=== PATIENT | male | born 1940 | race Caucasian/White ===

== ENCOUNTER 2019-09-29 12:33 | Observation (INO) | payer MEDICARE, SELFPAY ==
[2019-09-29] VITALS (10 sets, daily range): BP systolic 80–101; BP diastolic 51–75; PULSE 73–95; RESP 18–23; TEMP 36.4–36.8; O2SAT 94–97; BMI 22.3; BMI 21.8
--- NOTE | 2019-09-29 13:05 | ED.VISSUMM ---
- ER Visit Summary Date of Service: 09/29/19 Chief Complaint: Low blood pressure and near syncopal last night History of Present Illness: The patient is a 79 M history of chronic lymphocytic leukemia have been treated for that since 1992. Currently is on chemotherapy. His elevated blood sugars are working up for diabetes and has had prior PEs and DVTs for which he is on Coumadin. Patient states he felt well recently. He denies nausea, vomiting or diarrhea. He had a near syncopal episode last night because he felt weak all over and lightheaded. Was seen today at [facility] by 1 of the nurse practitioners and did a low blood pressure of 70/50 the same to the ER. He denies any abdominal pain or chest pain. He denies any shortness of breath. He denies any melena. Physical Examination: Older male initial blood pressure is 80/51 lying in the room is 94/60. He does not look septic or toxic. He sitting upright in bed conversing normally. Mathis at bedside. He does not look septic or toxic currently. H EENT T exam unremarkable moist his membranes. Neck nontender no JVD. No lymphadenopathy. Lungs clear to auscultation bilaterally. Heart rhythm rate about 95 no murmur. Chest were nontender. Abdomen soft nontender. Normal bowel sounds no peritoneal signs. Remedies moves all 4. He has a bruise on his left forearm and right forearm secondary being on Coumadin. He has normal spearer strength and dorsi and plantarflexion. Back is nontender. Neurologically is awake alert with no focal motor deficits. Test Results: Chest x-ray portable one view shows no acute abnormality. No infiltrate. Read both myself and radiologist. Chronic changes. EKG sinus rhythm rate 87 no acute signs of DC or ischemia. No dysrhythmia. CBC shows white count 32,000 which is his baseline he has CLL and his most recent white count was around 28,000 according to his oncologist. Hemoglobin 13. Platelet count of 85,000 and at his baseline also. Nasal bands. Chemistries unremarkable except glucose of 281. Normal gap of 8 BUN 20 creatinine 1.3. Troponin normal. Lactate 2.1. Patient is on Coumadin and INR subtherapeutic at 1.5. Urinalysis is still pending the patient has been unable to urinate as of this time he is already had 2 L of fluid. I also spoke to his oncologist who told me that his most recent blood cultures from the office were also negative. He was started on oral antibiotic for bronchitis. Emergency Department Course and Treatment: Older male on chemotherapy for CLL with hypotension. Treated with a liter normal saline. Second liter and will be started on the third. Treatment Plan: I spoke to patient oncologist. I also spoke to the hospitalist. Patient be admitted. Hospitalist wants patient on MedSurg. And does not want to start any antibiotics at this time which I am comfortable with since he has no fever no he has no source. Disposition: Admission Impression: Acute hypotension, uncertain etiology History of CLL on chemotherapy Anticoagulated on Coumadin This note was generated with [employer] dictation software. It may contain incorrect words, spelling, and punctuation that were not noted in review of the chart prior to signing ED Disposition - Plan for ED Patient: Referrals: Hollis Guillen III, MD [Primary Care Provider] -
--- NOTE | 2019-09-29 13:08 | EKG12_ITS ---
Test Reason : Blood Pressure : / mmHG Vent. Rate : 087 BPM Atrial Rate : 087 BPM P-R Int : 136 ms QRS Dur : 082 ms QT Int : 320 ms P-R-T Axes : 048 075 047 degrees QTc Int : 385 ms Normal sinus rhythm Normal ECG Confirmed by HEATHER MONREAL, ADRIÁN ([id number]), editorial specialist JOLEEN TIRADO ([id number]) on 10/02/2019 10:01:49 AM Referred By: Trino Andrews Confirmed By:ADRIÁN ROMERO MD
--- NOTE | 2019-09-29 13:15 | RAD_ITS ---
STUDY: X-RAY CHEST REASON FOR EXAM: Male, 79 years old. Hypotension. TECHNIQUE: Single AP portable view of the chest. COMPARISON: Comparison is made with prior study dated August 20, 2017. FINDINGS: EKG electrodes are seen. Hyperinflation. There is no demonstrated pleural abnormality. Normal size heart. Normal mediastinum and rona. There is prominence of the pulmonary hilar arteries without peripheral pulmonary vascular congestion, suggesting pulmonary hypertension. Normal visualized aortic arch and descending thoracic aorta. Normal visualized thoracic spine. Normal visualized ribs, clavicles, and shoulders. There is no demonstrated abnormality of the visualized soft tissue structures of the upper abdomen. RAD/Chest 1 View (Portable) IMPRESSION: Hyperinflation. The lungs are clear. Electronically Signed: Alex Saravia, at 13:30 EDT , Service support ,
[2019-09-29] MEDS: 0.9% Normal Saline 1,000 ML 1000 ML IV (13:28)
[2019-09-29 13:29] LABS: Absolute Lymphocyte Count 20.99 X10^3/uL (0.83-4.51); Absolute Neutrophil Count 9.6 X10^3/uL (2.0-7.7); Basophil# 0.18 X10^3/uL; Basophil% 0.5 % (0-1); Eosinophil# 0.09 X10^3/uL; Eosinophils% 0.3 % (0-5); Hematocrit 41.6 % (40-54); Hemoglobin 13.7 g/dL (13.0-16.5); Lymphocyte # 20.99 X10^3/ul (4.0); Lymphocyte % 63.1 % (19-41); Mean Corp Hgb Conc 32.9 g/dL (32-36); Mean Corpuscular Hgb 33.4 pg (27.0-32.0); Mean Corpuscular Volume 101.5 fL (80-94); Mean Platelet Vol. 13.4 fl (6.2-12.0); Monocyte# 2.13 X10^3/uL; Monocyte% 6.4 % (0-10); NRBC Flagged by Analyzer 0 % (0-5); Neutrophil # 9.63 X10^3/uL (2.7-7.7); Neutrophil % 28.9 % (47-70); POSITIVE COUNT YES; POSITIVE DIFFERENTIAL YES; POSITIVE MORPHOLOGY YES; Platelet Count 85 K/mm3 (150-450); RBC Distribution Width CV 14.2 % (11.6-14.6); RBC Distribution Width SD 52.4 fl (35.1-43.9); White Blood Count 33.3 K/mm3 (4.4-11.0)
[2019-09-29 13:33] LABS: Anion Gap 8 (5-15); BUN 20 mg/dL (7-18); BUN/Creat Ratio 15.4 RATIO (10-20); Calcium,Total 9.6 mg/dL (8.5-10.1); Chloride 99 mmol/L (98-107); EST Glomerular Filtration Rate 57 mL/min (>60); Est Glom Filt Rate - Afr Amer 68 mL/min (>60); Estimated Creatinine Clearance 51.35 ml/min; Glucose 281 mg/dL (74-106); Potassium 4.6 mmol/L (3.5-5.1); Sodium Level 133 mmol/L (136-145)
--- NOTE | 2019-09-29 14:01 | NURSING ---
BLUE TOP IS TOO SHORT
[2019-09-29 14:08] LABS: Lactic Acid 2.1 mmol/L (0.4-2.0)
[2019-09-29 14:22] LABS: International Normalized Ratio 1.5; Prothrombin Time (Protime)PT. 17.5 SECONDS (11.7-14.9)
[2019-09-29] MEDS: 0.9% Normal Saline 1,000 ML 999 ML IV (14:50)
--- NOTE | 2019-09-29 15:35 | NURSING ---
MED SURG JOPPERI OBS HYPOTENSION
--- NOTE | 2019-09-29 15:55 | HP.PCM_ITS ---
Problem List (1) Hypotension Status: Acute History of Present Illness Date of Admission: 09/29/19 Chief Complaint: malaise The patient is a 79 year old M who has not been feeling well for the past few days. Yesterday, around 1030 last night, patient was up to go to the bathroom and then he just felt woozy nearly passed out. Went to an urgent care today and he was found to be hypotensive and then directed to the emergency room where the patient was hypotensive in the 80s. Received 2 L of IV fluid and currently his pressures are in the 90s. Several days ago, patient was having a cough and saw his oncologist who started him on Augmentin. Patient denies history of a low blood pressure before. Recently, patient has been found to have elevated blood sugars. Patient's blood sugar yesterday was 300. Stated that he diabetes medication was sent to his pharmacy. He has not started it nor does he know what the actual medication is. [] Past Medical History Medical History: Medical History (Last Updated 09/29/19 @ 15:58 by Trino Andrews DO) DM2 (diabetes mellitus, type 2) E11.9 DVT (deep venous thrombosis) I82.409 CLL (chronic lymphocytic leukemia) C91.10 Gout M10.9 Leukemia C95.90 Allergies No Known Allergies Allergy (Verified 09/29/19 12:33) Home Medications: Ambulatory Orders Medication Instructions Recorded Amoxicillin/Potassium Clav 1 tab PO BID 09/29/19 [Amox-Clav 875-125 mg Tablet] Famotidine 20 mg PO DAILY 09/29/19 Finasteride 5 mg PO DAILY 09/29/19 Folic Acid 1 mg PO DAILY 09/29/19 Ibrutinib [Imbruvica] 140 mg PO DAILY 09/29/19 Multivitamin [Multiple Vitamins] 1 tab PO DAILY 09/29/19 Prednisone 10 mg PO DAILY 09/29/19 Simvastatin 40 mg PO DAILY 09/29/19 Warfarin [Coumadin ([facility])] 2.5 mg PO DAILY 09/29/19 Surgical History: Surgical History (Last Updated 08/29/18 @ 12:49 by Kalli Maldonado) heel surgery due to crush injury Smoking Status: Never smoker - *Family History Maternal History Items: - - no cancer Review of Systems Constitutional: Reports: Anorexia, Chills, Fever, Malaise Eyes: Denies: Blurred vision, Double vision HEENT: Denies: Head Aches, Sinus Congestion, Sinus Drainage Cardiovascular: Denies: Chest Pain, Palpitations Respiratory: Denies: Cough, Shortness of breath at rest, Sputum production Gastrointestinal: Denies: Abdominal Pain, Nausea, Vomiting Genitourinary: Reports: - - Decreased urine output today. Denies: Dysuria Musculoskeletal: Denies: Joint Pain, Joint Tenderness Skin: Denies: Rash, Wounds Neurological: Reports: Balance problems. Denies: Blurred vision, Double vision Psychiatric: Denies: Anxiety, Depression Hematologic/ Lymphatic: Reports: Hx of blood clot. Denies: Easy Bruising, Easy Bleeding Comment: All review systems are otherwise negative except for as mentioned above in HPI. VTE Information - Inpt Only VTE Present on Admission: Yes VTE Mechan Device Prophylaxis: None VTE Pharm Prophylaxis ordered?: No Reason prophylaxis not ordered:: Procedure Not Indicated Patient Problems: Active and Suspected Problems (Last Updated 08/29/18 @ 12:49 by Kalli Maldonado) Hypotension (Acute) - Physical Exam Vitals/I&O's: Vital Signs Temp Pulse Resp BP Pulse Ox 36.7 C 79 18 93/63 95 09/29/19 14:46 09/29/19 14:46 09/29/19 14:46 09/29/19 14:46 09/29/19 14:46 Oxygen Delivery Method Room Air Weight: 78.8 kg Body Mass Index (BMI) 22.3 Intake and Output for Last 24 Hours 09/27/19 09/28/19 09/29/19 23:59 23:59 23:59 Intake Total 1000 / 1000 Balance 1000 / 1000 General: Alert, Cooperative, No apparent distress, Well developed, Well nourished HEENT: Atraumatic, Normocephalic, - - no icterus Oral: Moist Mucosa, No Gingival or Mucosal Lesions/ Ulcerations Neck: No Nodes, Trachea Midline Lungs: Clear to auscultation, Normal air movement, No rhonchi, No wheeze, No rales Cardiovascular: Regular rate, Regular Rhythm, Normal S1, Normal S2, No murmurs Abdomen: Bowel Sounds Present, Soft, Non Tender, Non-Distended, No Hepato- splenomegaly Extremities: No edema, No Calf Tenderness Skin: No rashes, No breakdown Musculoskeletal: No Tenderness to Palpation of Joints or Extremities, No Muscle Wasting Neurological: - - no clonus Psych/Mental Status: Normal Affect, Appropriate Laboratory Results 09/29/19 12:00: PT 17.5 H, INR 1.5 09/29/19 12:52: WBC 33.3 H*, RBC 4.10 L, Hgb 13.7, Hct 41.6, MCV 101.5 H, MCH 33.4 H, MCHC 32.9, RDW Std Deviation 52.4 H, RDW Coeff of Amilcar 14.2, Plt Count 85 L, MPV 13.4 H, Immature Gran % (Auto) 0.800, Neut % (Auto) 28.9 L, Lymph % (Auto) 63.1 H, [place] % (Auto) 6.4, Eos % (Auto) 0.3, Baso % (Auto) 0.5, Absolute Neuts (auto) 9.6 H, Absolute Lymphs (auto) 20.99 H, Nucleated RBC % 0 09/29/19 12:52: PT Cancelled, INR Cancelled 09/29/19 12:52: Sodium 133 L, Potassium 4.6, Chloride 99, Carbon Dioxide 26.0, Anion Gap 8, BUN 20 H, Creatinine 1.30, Estim Creat Clear Calc 51.35, Est GFR (MDRD) Af Amer 68, Est GFR (MDRD) Non-Af 57 L, BUN/Creatinine Ratio 15.4, Glucose 281 H, Calcium 9.6, Troponin I 0.035 09/29/19 13:27: Lactic Acid 2.1 H EKG reviewed and showed normal sinus rhythm without any acute changes. Chest x-ray reviewed and showed normal airways. No pulmonary congestion no infiltrate. Assessment/Plan All Active Problems (Last Updated 08/29/18 @ 12:49 by Kalli Maldonado) Hypotension (Acute) 1. Hypotension * Clinically patient does not appear to be dry though he did respond with IV fluids * I am concerned there may be some component of adrenal insufficiency given the patient's chronic prednisone use with a recent upper respiratory infection * Patient is on prednisone 10 mg daily. But given dose of 60 today and then patient will need to be on a taper down to his 10 mg dosing. * We will give the patient some additional IV fluids and monitor him. * No obvious source of bacterial infection can be identified at this time. Urinalysis is been ordered but has not yet been performed this patient has not been able to urinate yet. 2. CLL * She is on prednisone plus ibrutinib * Follow-up with Dr. Morris as outpt 3. Diabetes mellitus type 2 * Recent diagnosis. Seems like it is likely diagnosed in his primary care provider's office as he was prescribed a diabetes medication according to the patient. * I will check an A1c and sliding scale insulin for now. * Anticipate the patient be able to go home with metformin, however if his blood sugars remain high which may be exacerbated with steroids may require insulin therapy. I will also check an A1c to see where his blood sugars have been 4. History of DVT * INR is subtherapeutic at 1.5 * Continue with warfarin and add weight-based dosing of enoxaparin 5. VTE prophylaxis: Low risk as patient is already anticoagulated 6. Advanced care planning: Asked patient if he will want full measures event of cardia pulmonary rest. Patient states that he wishes to be full CODE STATUS at this time. Case discussed with patient's at bedside. Plan is to watch patient overnight and if he remains stable and no further decline in his condition, then he can likely be discharged home on the second. Code Visit OBSV E&M: 23705 Initial observation care L3
[2019-09-29] MEDS: 0.9% Saline Lock 10 ML Syringe IV (16:58)
[2019-09-29] MEDS: 0.9% Normal Saline 1,000 ML 150 ML IV (17:00)
[2019-09-29 17:32] LABS: Reflex Lactate? Y
[2019-09-29] MEDS: Enoxaparin 80 MG/0.8 ML Syringe SC (17:32)
[2019-09-29] MEDS: Insulin Lispro 100 UNIT/ML INSULN.PEN SC ×2 (17:32→22:44)
[2019-09-29] MEDS: predniSONE 20 MG Tablet 60 MG PO (17:33)
[2019-09-29 17:55] LABS: Bedside Glucose 250 mg/dL (70-110)
[2019-09-29 18:57] LABS: Lactic Acid 1.3 mmol/L (0.4-2.0)
[2019-09-29] MEDS: Atorvastatin Calcium 20 MG Tablet PO (22:01)
[2019-09-29 22:16] LABS: Bedside Glucose 338 mg/dL (70-110)
[2019-09-30 02:00] VITALS: PULSE 66
[2019-09-30] MEDS: Insulin Lispro 100 UNIT/ML INSULN.PEN SC ×3 (02:05→11:31)
[2019-09-30 02:13] VITALS: BP 101/60; PULSE 64; RESP 16; TEMP 36.4; O2SAT 99
[2019-09-30 02:35] LABS: Bedside Glucose 309 mg/dL (70-110)
[2019-09-30] MEDS: Enoxaparin 80 MG/0.8 ML Syringe SC (05:49)
[2019-09-30 06:00] VITALS: PULSE 66
[2019-09-30 06:43] VITALS: BP 91/57; PULSE 68; RESP 18; TEMP 36.4; O2SAT 96
[2019-09-30 06:56] LABS: Bedside Glucose 264 mg/dL (70-110)
[2019-09-30 07:20] LABS: Absolute Lymphocyte Count 13.95 X10^3/uL (0.83-4.51); Absolute Neutrophil Count 4.2 X10^3/uL (2.0-7.7); Basophil% 0.5 % (0-1); Hematocrit 33.6 % (40-54); Hemoglobin 10.9 g/dL (13.0-16.5); Lymphocyte # 13.95 X10^3/ul (4.0); Lymphocyte % 74.2 % (19-41); Mean Corp Hgb Conc 32.4 g/dL (32-36); Mean Corpuscular Hgb 32.8 pg (27.0-32.0); Mean Corpuscular Volume 101.2 fL (80-94); Mean Platelet Vol. 13.3 fl (6.2-12.0); Monocyte# 0.47 X10^3/uL; Monocyte% 2.5 % (0-10); NRBC Flagged by Analyzer 0 % (0-5); Neutrophil # 4.19 X10^3/uL (2.7-7.7); Neutrophil % 22.3 % (47-70); POSITIVE COUNT YES; POSITIVE DIFFERENTIAL YES; POSITIVE MORPHOLOGY YES; Platelet Count 68 K/mm3 (150-450); RBC Distribution Width CV 14.1 % (11.6-14.6); RBC Distribution Width SD 52.8 fl (35.1-43.9); Red Blood Count 3.32 M/mm3 (4.6-6.2); White Blood Count 18.8 K/mm3 (4.4-11.0)
[2019-09-30 07:21] LABS: Differential Indicated SCAN CRITERIA MET
[2019-09-30 07:47] LABS: Anion Gap 7 (5-15); BUN 23 mg/dL (7-18); BUN/Creat Ratio 25.5 RATIO (10-20); Calcium,Total 8.8 mg/dL (8.5-10.1); Chloride 105 mmol/L (98-107); EST Glomerular Filtration Rate 86 mL/min (>60); Est Glom Filt Rate - Afr Amer 104 mL/min (>60); Estimated Creatinine Clearance 72.59 ml/min; Glucose 287 mg/dL (74-106); Potassium 4.3 mmol/L (3.5-5.1); Sodium Level 137 mmol/L (136-145)
[2019-09-30 08:02] LABS: Differential Comment SCANNED; Platelet Estimate SLT DEC (ADEQ); Reactive Lymphocyte 1+
[2019-09-30 09:05] VITALS: PULSE 73
[2019-09-30 09:24] VITALS: BP 104/66; PULSE 76; RESP 18; TEMP 36.3; O2SAT 96
[2019-09-30 09:27] LABS: International Normalized Ratio 1.6; Prothrombin Time (Protime)PT. 19.3 SECONDS (11.7-14.9)
[2019-09-30] MEDS: Famotidine 20 MG Tablet PO (09:40)
[2019-09-30] MEDS: predniSONE 20 MG Tablet 40 MG PO (09:40)
[2019-09-30] MEDS: Multivitamins,Therapeutic Tablet 1 TABLET PO (09:40)
[2019-09-30] MEDS: Folic Acid 1 MG Tablet PO (09:40)
[2019-09-30] MEDS: Finasteride 5 MG Tablet PO (10:23)
--- NOTE | 2019-09-30 11:31 | DCINST_ITS ---
- Discharge Diagnoses Current Active Problems: Current Active and Chronic Problems (Last Updated 09/29/19 @ 15:58 by Trino Andrews DO) Hypotension (Acute) You will use the following diet at home:: No restrictions Your food should be the consistency of: Regular Your liquids should be the consistency of: Regular/Thin Discharge Activity: Return to Normal Activity Weight Bearing Status: Full weight bearing Additional Instructions: take home diabetic meds as directed Allergies/Adverse Reactions: Allergies No Known Allergies Allergy (Verified 09/29/19 12:33) Medications to take at Discharge Amoxicillin/Potassium Clav [Amox-Clav 875-125 mg Tablet] 1 tab PO BID 09/29/19 Famotidine 20 mg PO DAILY 09/29/19 Finasteride 5 mg PO DAILY 09/29/19 Folic Acid 1 mg PO DAILY 09/29/19 Ibrutinib [Imbruvica] 140 mg PO DAILY 09/29/19 Multivitamin [Multiple Vitamins] 1 tab PO DAILY 09/29/19 Prednisone 10 mg PO DAILY 09/29/19 Simvastatin 40 mg PO DAILY 09/29/19 Warfarin [Coumadin] 4 mg PO DAILY #1 tab 09/30/19 The following prescriptions were given: Warfarin [Coumadin] 4 mg PO DAILY #1 tab Primary Care Physician: Hollis Guillen III, MD [Primary Care Provider] - Please follow up with your Primary Care Physician in: this week-get INR rechecked on Wednesday Test Results: Test results from this visit will be discussed in further detail at your follow- up appointment, if applicable.
[2019-09-30 12:16] LABS: Bedside Glucose 376 mg/dL (70-110)
--- NOTE | 2019-09-30 16:08 | DS.PCM_ITS ---
Discharge Date and Diagnosis Date of Admission: 09/29/19 Date of Discharge: 09/30/19 - Primary Discharge Diagnosis #1 hypotension secondary to dehydration #2 type 2 diabetes-under poor control #3 chronic lymphocytic leukemia #4 chronic Coumadin usage Hospital Course and Treatment Operations: None Procedures: None Summary of Care Provided: The patient is a 79 year old M was seen in the emergency room at [facility] with chief complaints of lightheadedness and presyncopal symptoms, he had gone to urgent care on 09/29/2019 and found to be hypotensive and directed to the emergency room for evaluation. In the emergency room, he was noted to be hypotensive and given IV fluid, labs revealed elevated blood sugar and his white blood cell count was 33,000 (patient has a history of CLL). Patient was placed in observation status on MedSurg 3, IV fluids were continued, and the patient's white blood cell count on 09/30/2019 was 18.8. Patient was ambulating well on that date, he can denied any complaints of lightheadedness. On examination he appeared in good health and spirits. Vital signs as documented. Skin warm and dry and without overt rashes. Neck without JVD. Lungs clear. Heart exam notable for regular rhythm, normal sounds and absence of murmurs, rubs or gallops. Abdomen unremarkable and without evidence of organomegaly, masses, or abdominal aortic enlargement. Extremities nonedematous. Neuro: Cranial nerves II through XII are grossly intact, no focal motor deficits were noted, sensation to light touch and pinprick intact. Psych: Patient is alert and oriented x3, he does not appear anxious or depressed On 09/30/2019, patient was seen and examined felt to be in stable condition for discharge home-he was instructed to increase his warfarin due to a low INR. - Physical Exam Vitals/I&O's: Vital Signs Temp Pulse Resp BP Pulse Ox 97.4 F L 76 18 104/66 96 09/30/19 09:24 09/30/19 09:24 09/30/19 09:24 09/30/19 09:24 09/30/19 09:24 Oxygen Delivery Method Room Air Weight: 77.111 kg Body Mass Index (BMI) 21.8 Intake and Output for Last 24 Hours 10/31/19 11/01/19 11/02/19 23:59 23:59 23:59 Intake Total 2800 / 2800 1460 / 1460 Balance 2800 / 2800 1460 / 1460 Laboratory Results 09/29/19 12:52: Hemoglobin A1c 10.0 H 09/29/19 16:59: POC Glucose 250 H 09/29/19 18:14: Lactic Acid 1.3 09/29/19 22:03: POC Glucose 338 H 09/30/19 02:03: POC Glucose 309 H 09/30/19 06:21: WBC 18.8 H, RBC 3.32 L, Hgb 10.9 L, Hct 33.6 L, MCV 101.2 H, MCH 32.8 H, MCHC 32.4, RDW Std Deviation 52.8 H, RDW Coeff of Amilcar 14.1, Plt Count 68 L, MPV 13.3 H, Immature Gran % (Auto) 0.500, Neut % (Auto) 22.3 L, Lymph % (Auto) 74.2 H, [place] % (Auto) 2.5, Eos % (Auto) 0.0, Baso % (Auto) 0.5, Absolute Neuts (auto) 4.2, Absolute Lymphs (auto) 13.95 H, Nucleated RBC % 0, Differential Comment SCANNED, Reactive Lymphocytes 1+, Platelet Estimate SLT 09/30/19 06:21: Sodium 137, Potassium 4.3, Chloride 105, Carbon Dioxide 25.0, Anion Gap 7, BUN 23 H, Creatinine 0.90, Estim Creat Clear Calc 72.59, Est GFR (MDRD) Af Amer 104, Est GFR (MDRD) Non-Af 86, BUN/Creatinine Ratio 25.5 H, Glucose 287 H, Calcium 8.8 09/30/19 06:38: POC Glucose 264 H 09/30/19 09:12: PT 19.3 H, INR 1.6 09/30/19 11:28: POC Glucose 376 H Discharge Activity: Return to Normal Activity Weight Bearing Status: Full weight bearing Home Medications: Medications to take at Discharge Amoxicillin/Potassium Clav [Amox-Clav 875-125 mg Tablet] 1 tab PO BID 09/29/19 Famotidine 20 mg PO DAILY 09/29/19 Finasteride 5 mg PO DAILY 09/29/19 Folic Acid 1 mg PO DAILY 09/29/19 Ibrutinib [Imbruvica] 140 mg PO DAILY 09/29/19 Multivitamin [Multiple Vitamins] 1 tab PO DAILY 09/29/19 Prednisone 10 mg PO DAILY 09/29/19 Simvastatin 40 mg PO DAILY 09/29/19 Warfarin [Coumadin] 4 mg PO DAILY #1 tab 09/30/19 Following Prescrptions Were Given to Patient: Warfarin [Coumadin] 4 mg PO DAILY #1 tab Primary Care Physician: Hollis Guillen III, MD [Primary Care Provider] - Please follow up with your Primary Care Physician in: this week-get INR rechecked on Wednesday Disposition: Home Minutes spent on discharge:: 31 Patient Condition:: Stable Medical Necessity - Tobacco Use Smoking Status: Never smoker Tobacco Use: Non-smoker Meaningful Use Info Meaningful Use Diagnoses (Choose all that apply): None applicable Code Visit OBSV E&M: 39444 Observation care discharge
[2019-10-02 12:01] LABS: Pathologist Review Reviewed
== END 2019-09-30 13:17 | disposition home or self-care (01) ==
LOC: ED 13:17 → MS3 16:10
PROVIDERS: Emergency Provider Emergency Medicine; Family Provider Family Medicine; PCP Family Medicine; Visit Provider Internal Medicine
DX: E86.0 Dehydration (principal); I95.9 Hypotension, unspecified; E11.65 Type 2 diabetes mellitus with hyperglycemia; C91.10 Chronic lymphocytic leukemia of B-cell type not having achieved remission; Z79.899 Other long term (current) drug therapy; Z79.52 Long term (current) use of systemic steroids; Z79.01 Long term (current) use of anticoagulants; Z86.718 Personal history of other venous thrombosis and embolism; Z86.711 Personal history of pulmonary embolism
CPT/HCPCS: 36415; 71045; 80048; 82962; 83036; 83605; 84484; 85025; 85610; 87040; 93005; 96360; 96361; 96372; 99218; 99285; J7030; A4216; G0378